=== PATIENT | female | born 1940 ===

== ENCOUNTER 2017-05-25 16:54 | Outpatient (CLI) | payer OTHER | END 2017-05-25 23:59 | disposition home or self-care (01) | LOC: D.MAMMO 16:54 | DX: Z12.31 Encounter for screening mammogram for malignant neoplasm of breast (principal) ==

== ENCOUNTER 2020-09-07 05:00 | Day surgery (SDC) | payer OTHER ==
[2020-09-03 15:11] LABS: BASOPHILS 0.2 % (0-2); EOSINOPHILS 0.5 % (0-7); HEMATOCRIT 37.9 % (36.0-48.0); HEMOGLOBIN 12.8 g/dL (12-16); IMMATURE GRANULOCYTES 0.2 % (0-5); LYMPHOCYTE ABS# 2.26 10x3/uL (1.18-3.74); LYMPHOCYTES 23.4 % (15-50); MCH 33.2 pg (26.0-34.0); MCHC 33.8 g/dL (31.0-37.0); MCV 98.2 fL (80.0-100.0); MEAN PLATELET VOLUME 8.5 fL (7.4-10.4); MONOCYTES 11.1 % (2-11); NEUTROPHIL ABS# 6.23 10x3/uL (1.56-6.13); NEUTROPHILS 64.6 % (40-80); PLATELET COUNT 278 10x3/uL (130-400); RBC 3.86 10x6/uL (4.00-5.40); RDW 12.8 % (11.5-14.5); WBC 9.7 10x3/uL (4.8-10.8)
[2020-09-03 15:33] LABS: ANION GAP 12.8 mmol/L (8-16); CALCIUM 9.2 mg/dL (8.5-10.1); CREATININE - SERUM 1.5 mg/dL (0.6-1.3); POTASSIUM - SERUM 3.8 mmol/L (3.5-5.1)
[~2020-09-07] VITALS: Ht 157.5 cm; Wt 63.5 kg
[~2020-09-07 05:00] MED LIST: ALDACTONE50 MG PO; BUPROPION HCL100 MG PO; CLARITIN 10 MG10 MG PO; CLONIDINE HCL0.1 MG; COLACE100 MG; FIBERCON625 MG PO; FLUTICASONE PRO16 GM NASAL; HYDROCODON-ACE1 EA10; LISINOPRIL40 MG; MELATONIN5 MG PO; MULTI-DAY VITAM1 TAB PO; NORVASC10 MG; PAXIL20 MG PO; PRILOSEC; PROBIOTIC BLEN1 EACH; TENORMIN100 MG; TRAZODONE HCL150 MG; VITAMIN D325 MC1 PO; XANAX0.5 MG
[2020-09-07 05:48] VITALS: BP 123/47; Ht 157.5 cm; Wt 63.5 kg
--- NOTE | 2020-09-07 13:02 | OP ---
PATIENT NAME: JOVON GODOY MEDICAL RECORD: [id number] :41 LOCATION:D.OPS ADMISSION DATE: SURGEON: JESSICA LA DO DATE OF OPERATION: 09/07/2020 PROCEDURE PERFORMED: Left endoscopic carpal tunnel release and left cubital tunnel release. PREOPERATIVE DIAGNOSES: Left carpal tunnel syndrome and left cubital tunnel syndrome. POSTOPERATIVE DIAGNOSES: Left carpal tunnel syndrome and left cubital tunnel syndrome. INDICATIONS: Ms. Godoy is a 80-year-old female who has had carpal and cubital tunnel symptoms for quite some time. She had nerve conduction study showing the findings and she wanted something done surgically. She is tired dealing with pain and numbness and waking her up and she wants something done surgically. She is aware of the risks including infection, bleeding, damage to nerve or vessel, need for further surgery, continued pain, blood clots and even and she signed the consent. SURGEON: Jessica La DO DESCRIPTION OF PROCEDURE: The patient was taken to the operative suite, laid in supine position, given general anesthetic and LMA was placed. She was given a gram of Ancef preoperatively. Left upper extremity was then prepped and draped in sterile fashion. A timeout was performed. Everyone was in agreement with the correct side, site, patient and procedure. I then began by exsanguinating the left upper extremity with an Esmarch, tourniquet was inflated to 250 mmHg, was up for 15 minutes. I then made an incision over the elbow on the medial side just inferior to the medial epicondyle. I made careful dissection down to the ulnar nerve and dissected it out and released it proximally and distally. I then anisha attention to the carpal tunnel and made a small incision centered over the palmaris longus tendon, made blunt dissection down with Ragnells down to the median nerve and I then released the forearm fascia from the incision from distal to proximal and then we went to the carpal tunnel itself with a dilator and then brought the sheath in with a 2.7 scope and viewed the transverse carpal ligament, rasped and probed to make sure there was no transligamentous nerve. I did not see any of them and brought the blade and raised it up and transected the transverse carpal ligament fat herniated down into the carpal tunnel at that time. I then let the tourniquet down. I injected both sites with 10 mL of 0.25% Marcaine with epinephrine. I then closed the cubital tunnel with 3-0 Vicryl in inverted interrupted fashion and 5-0 Monocryl ran on the skin and the 5-0 Monocryl in inverted fashion on the carpal tunnel site. Each site were dressed with Steri-Strips, Adaptic, 4 x 4's and a Kerlix and then wrapped lightly with Coban. She was then awakened and taken to recovery in stable condition. BLOOD LOSS: Minimal. COMPLICATIONS: None. TRANSINT:[id number] Voice Confirmation ID: [id number] DOCUMENT ID: [id number] OPERATIVE REPORT [id number] JOVON GODOY MICHAEL D, DO at 1302 CC: [id number] DICTATION DATE: 09/07/20 0745 SET OFF PRESS OPERATOR: 09/07/20 1231 [facility] 09/07/20 [id number] [place] [address]
== END 2020-09-07 09:20 | disposition home or self-care (01) ==
LOC: D.OPS 05:00
PROVIDERS: Anesthesiology; ATTEND Orthopaedic Surgery
DX: G56.02 Carpal tunnel syndrome, left upper limb (principal); G56.22 Lesion of ulnar nerve, left upper limb